=== PATIENT | female | born 1995 | race Two or more races ===

== ENCOUNTER 2019-12-29 09:25 | Inpatient (IN) | payer OTHER ==
[~2019-12-29] VITALS: Ht 165.1 cm; Wt 90.0 kg
[2019-12-29] MEDS ORDERED: OXYTOCIN 30U/ 0.9% NaCL 500ML 500 ML ONE (09:33)
[2019-12-29] MEDS ORDERED: LIDOCAINE 1%, 20ML ONE (09:40)
[2019-12-29] MEDS: OXYTOCIN 30U/ 0.9% NaCL 500ML 500 ML IV SCH ×2 (10:10→20:10)
[2019-12-29] MEDS ORDERED: NEWBORN KIT ONE (10:20)
[2019-12-29] MEDS ORDERED: MISOPROSTOL 200 MCG TABLET PR PRN (10:30)
[2019-12-29] MEDS ORDERED: METHYLERGONOVINE 0.2 MG/ML IM PRN (10:30)
[2019-12-29] MEDS ORDERED: ACETAMINOPHEN 325 MG TABLET PO PRN (10:30)
[2019-12-29] MEDS ORDERED: CARBOPROST TROMETHAMINE 250 MCG/ML, 1ML IM PRN (10:30)
[2019-12-29] MEDS ORDERED: PLEASE ENTER ALLERGIES MC SCH (10:30)
[2019-12-29] MEDS ORDERED: METOCLOPRAMIDE 5 MG/ML, 2ML IV PRN (10:30)
[2019-12-29] MEDS ORDERED: OXYcodone/APAP 5/325MG TABLET PO PRN (10:30)
[2019-12-29] MEDS ORDERED: OXYcodone IR 5MG TABLET PO PRN (10:30)
[2019-12-29] MEDS ORDERED: PLEASE ENTER HEIGHT AND WEIGHT MC SCH (10:30)
[2019-12-29] MEDS ORDERED: SIMETHICONE 80 MG CHEW TAB PO PRN (10:30)
[2019-12-29] MEDS ORDERED: ONDANSETRON 2MG/ML, 2ML IV PRN (10:30)
[2019-12-29] MEDS: LACTATED RINGERS 1,000 ML IV SCH ×2 (10:55→18:55)
[2019-12-29] MEDS ORDERED: AMPICILLIN 2 GM in SODIUM CHLORIDE 0.9% 100 ML IVPB STA (10:55)
[2019-12-29 11:35] LABS: BASOPHILS # (AUTO) 0.02 x10^3/uL (0-0.1); BASOPHILS % (AUTO) 0 % (0-1); EOSINOPHILS # (AUTO) 0.02 x10^3/uL (0-0.4); EOSINOPHILS % (AUTO) 0 % (1-7); LYMPHOCYTES # (AUTO) 0.79 x10^3/uL (1-3.4); LYMPHOCYTES % (AUTO) 7 % (22-44); MD NO; MEAN CORPUSCULAR HEMOGLOBIN 25.4 pg (27.0-34.8); MEAN CORPUSCULAR HGB CONC 32.4 g/dL (32.4-35.8); MEAN CORPUSCULAR VOLUME 78.2 fL (80-100); MEAN PLATELET VOLUME 7.7 fL (7.4-10.4); MONOCYTES # (AUTO) 0.35 x10^3/uL (0.2-0.8); MONOCYTES % (AUTO) 3 % (2-9); NEUTROPHILS # (AUTO) 10.35 x10^3/uL (1.8-6.8); NEUTROPHILS % (AUTO) 90 % (42-75); PLATELET COUNT 215 x10^3/uL (130-400); RED BLOOD COUNT 3.78 x10^6/uL (3.82-5.3)
[2019-12-29 12:50] VITALS: BP 115/72
[2019-12-29] MEDS: IBUPROFEN 600 MG TABLET PO PRN (16:11)
[2019-12-29 20:01] VITALS: BP 113/70
[2019-12-30 00:15] VITALS: BP 113/74
[2019-12-30] MEDS: LACTATED RINGERS 1,000 ML IV SCH ×2 (02:55→18:55)
[2019-12-30] MEDS: OXYTOCIN 30U/ 0.9% NaCL 500ML 500 ML IV SCH ×2 (04:22→19:00)
[2019-12-30 05:14] VITALS: BP 114/75
[2019-12-30] MEDS: IBUPROFEN 600 MG TABLET PO PRN (07:35)
[2019-12-30] MEDS: DOCUSATE 100 MG CAPSULE PO PRN (07:35)
[2019-12-30] MEDS: PRENATAL VIT/IRON/FA 1 EACH TABLET PO SCH (07:35)
[2019-12-30 07:50] VITALS: BP 115/73
[2019-12-30 20:10] VITALS: BP 128/86
[2019-12-30 20:31] LABS: BASOPHILS # (AUTO) 0.04 x10^3/uL (0-0.1); BASOPHILS % (AUTO) 0 % (0-1); EOSINOPHILS % (AUTO) 1 % (1-7); LYMPHOCYTES # (AUTO) 2.48 x10^3/uL (1-3.4); LYMPHOCYTES % (AUTO) 26 % (22-44); MD NO; MEAN CORPUSCULAR HEMOGLOBIN 25.3 pg (27.0-34.8); MEAN CORPUSCULAR HGB CONC 32.4 g/dL (32.4-35.8); MEAN CORPUSCULAR VOLUME 78.2 fL (80-100); MEAN PLATELET VOLUME 7.1 fL (7.4-10.4); MONOCYTES # (AUTO) 0.38 x10^3/uL (0.2-0.8); MONOCYTES % (AUTO) 4 % (2-9); NEUTROPHILS # (AUTO) 6.75 x10^3/uL (1.8-6.8); NEUTROPHILS % (AUTO) 69 % (42-75); PLATELET COUNT 255 x10^3/uL (130-400); RED BLOOD COUNT 3.69 x10^6/uL (3.82-5.3); RED CELL DISTRIBUTION WIDTH 15.4 % (9.6-15.2)
[2019-12-31] MEDS: IBUPROFEN 600 MG TABLET PO PRN ×2 (01:29→09:18)
[2019-12-31] MEDS: OXYTOCIN 30U/ 0.9% NaCL 500ML 500 ML IV SCH (02:10)
[2019-12-31] MEDS: LACTATED RINGERS 1,000 ML IV SCH ×2 (02:55→10:55)
[2019-12-31 09:15] VITALS: BP 112/78
[2019-12-31] MEDS: PRENATAL VIT/IRON/FA 1 EACH TABLET PO SCH (09:18)
[2019-12-31] MEDS: DOCUSATE 100 MG CAPSULE PO PRN (09:18)
[2019-12-31] MEDS ORDERED: MEDROXYPROGESTERONE ACETATE 150 MG/ML IM ONE (12:00)
[2019-12-31] MEDS ORDERED: DOCU-131 PO (12:11)
[2019-12-31] MEDS ORDERED: IBUP-1222 PO (12:11)
[2019-12-31] MEDS ORDERED: FERR324T18 PO (12:29)
[2019-12-31] MEDS ORDERED: FERROUS GLUCONATE 324 MG TABLET PO SCH (17:00)
== END 2019-12-31 16:30 | disposition home or self-care (01) | DRG 807 ==
LOC: LDIP 09:25 → 2NW 11:26
PROVIDERS: ADMIT Obstetrics & Gynecology Maternal & Fetal Medicine; ATTEND Obstetrics & Gynecology Maternal & Fetal Medicine
PROC: 10E0XZZ Delivery of Products of Conception, External Approach (ICD-10-PCS; principal; 2019-12-29)
PROC: 0UQMXZZ Repair Vulva, External Approach (ICD-10-PCS; 2019-12-29)
DX: O62.3 Precipitate labor (principal); Z37.0 Single live birth; O76 Abnormality in fetal heart rate and rhythm complicating labor and delivery; O77.0 Labor and delivery complicated by meconium in amniotic fluid; O99.824 Streptococcus B carrier state complicating childbirth; Z3A.39 39 weeks gestation of pregnancy; O70.0 First degree perineal laceration during delivery; O69.81X0 Labor and delivery complicated by cord around neck, without compression, not applicable or unspecified
CPT/HCPCS: 36415; 85025; 86592; 86850; 86900; 87806; G0378; G0475; J1050

== ENCOUNTER → 2020-12-26 | Outpatient (CLI) | payer OTHER ==
[~2020-12-26] MED LIST: DOCU-131 PO; FERR324T18 PO; IBUP-1222 PO
[2020-12-26 15:32] LABS: BASOPHILS % (AUTO) 1 % (0-1); EOSINOPHILS % (AUTO) 1 % (1-7); LYMPHOCYTES % (AUTO) 33 % (22-44); MEAN CORPUSCULAR HEMOGLOBIN 28.8 pg (27.0-34.8); MEAN CORPUSCULAR HGB CONC 33.6 g/dL (32.4-35.8); MEAN PLATELET VOLUME 7.7 fL (7.4-10.4); MONOCYTES % (AUTO) 5 % (2-9); NEUTROPHILS % (AUTO) 60 % (42-75); PLATELET COUNT 365 x10^3/uL (130-400); RED BLOOD COUNT 4.54 x10^6/uL (3.82-5.3); RED CELL DISTRIBUTION WIDTH 13.8 % (9.6-15.2)
[2020-12-26 15:38] LABS: MD NO
[2020-12-26 16:05] LABS: MICROSCOPIC NOT IND
== END | disposition home or self-care (01) ==
LOC: STAR 14:09
PROVIDERS: ATTEND Obstetrics & Gynecology
DX: Z01.812 Encounter for preprocedural laboratory examination (principal); Z20.822 Contact with and (suspected) exposure to COVID-19
CPT/HCPCS: 81003; 84703; 85025; 87635

== ENCOUNTER 2020-12-30 07:10 | Day surgery (SDC) | payer OTHER ==
[~2020-12-30] VITALS: Ht 165.1 cm; Wt 89.7 kg
[2020-12-30] MEDS ORDERED: MIDAZOLAM 1 MG/ML, 2ML ONE (07:54)
[2020-12-30] MEDS ORDERED: FENTANYL PF 250 MCG/5ML ONE (07:54)
[2020-12-30 08:07] VITALS: BP 110/74
[2020-12-30] MEDS ORDERED: CHLORHEXIDINE 15 ML UDC ONE (08:11)
[2020-12-30] MEDS ORDERED: BUPIVACAINE/PF 0.25% ONE (08:24)
[2020-12-30] MEDS ORDERED: EPINEPHRINE 1 MG/ML, 1ML ONE (08:24)
[2020-12-30] MEDS ORDERED: MEPERIDINE/PF 25MG/0.5ML IVPush PRN (08:30)
[2020-12-30] MEDS ORDERED: HYDROmorphone 1 MG/ML, 1ML INJ IVPush PRN (08:30)
[2020-12-30] MEDS ORDERED: PROMETHAZINE 25 MG/ML, 1ML IVPush PRN (08:30)
[2020-12-30] MEDS ORDERED: FENTANYL PF 100 MCG/2ML IV PRN (08:30)
[2020-12-30] MEDS ORDERED: morphine SULFATE 10 MG/ML, 1ML IVPush PRN (08:30)
[2020-12-30] MEDS ORDERED: OXYcodone 5 MG/5 ML ORAL.SOL UDC PO PRN (08:30)
[2020-12-30] MEDS ORDERED: LACTATED RINGERS 1,000 ML IV SCH (08:30)
[2020-12-30] MEDS ORDERED: CHLORHEXIDINE 15 ML UDC MM ONE (08:30)
[2020-12-30] MEDS ORDERED: ACETAMINOPHEN 325 MG TABLET PO PRN (08:30)
[2020-12-30] MEDS ORDERED: HALOPERIDOL 5 MG/ML IV PRN (08:30)
[2020-12-30] MEDS ORDERED: BUPIVACAINE/PF-EPI 0.25% 1:200K IM ONE (09:17)
[2020-12-30] MEDS ORDERED: NEOSTIGMINE 1 MG/ML, 10ML ONE (09:25)
[2020-12-30] MEDS ORDERED: PROPOFOL 10 MG/ML, 20ML ONE (09:25)
[2020-12-30] MEDS ORDERED: ROCURONIUM 10MG/ML,5ML ONE (09:25)
[2020-12-30] MEDS ORDERED: DEXAMETHASONE 4 MG/ML, 1ML ONE (09:25)
[2020-12-30] MEDS ORDERED: GLYCOPYRROLATE 0.2MG/1ML, 5ML ONE (09:25)
[2020-12-30] MEDS ORDERED: ONDANSETRON 2MG/ML, 2ML ONE (09:25)
[2020-12-30] MEDS ORDERED: CEFAZOLIN 1,000 MG ONE (09:25)
[2020-12-30] MEDS ORDERED: OXYC1TAB14 PO (09:37)
== END 2020-12-30 11:40 | disposition home or self-care (01) ==
LOC: OUT 07:10
PROVIDERS: ATTEND Obstetrics & Gynecology
DX: Z30.2 Encounter for sterilization (principal); G43.909 Migraine, unspecified, not intractable, without status migrainosus; Z79.899 Other long term (current) drug therapy; Z98.890 Other specified postprocedural states
CPT/HCPCS: 58670; 81025; 88302; J0171; J0690; J1100; J2250; J2405; J2704; J2710; J3010; J7120

== ENCOUNTER 2021-07-23 13:35 | Emergency (ER) | payer OTHER ==
[~2021-07-23] VITALS: Ht 165.1 cm; Wt 94.5 kg
[~2021-07-23 13:35] MED LIST changes: +OXYC1TAB12 PO
[2021-07-23] MEDS ORDERED: PHENAZOPYRIDINE 200 MG TABLET PO ONE (14:00)
[2021-07-23 14:16] LABS: MICROSCOPIC AUTO
[2021-07-23 14:22] LABS: ALBUMIN 3.7 g/dL (3.4-5.0); ANION GAP 5 mmol/L (5-15); CALCIUM 9.5 mg/dL (8.5-10.1); CHLORIDE 106 mmol/L (98-107)
[2021-07-23 14:27] LABS: CREATININE 0.78 mg/dL (0.55-1.02)
[2021-07-23 14:29] LABS: BASOPHILS % (AUTO) 1 % (0-1); EOSINOPHILS % (AUTO) 1 % (1-7); LYMPHOCYTES % (AUTO) 25 % (22-44); MEAN CORPUSCULAR HGB CONC 33.5 g/dL (32.4-35.8); MEAN PLATELET VOLUME 7.6 fL (7.4-10.4); MONOCYTES % (AUTO) 5 % (2-9); NEUTROPHILS % (AUTO) 69 % (42-75); PLATELET COUNT 305 x10^3/uL (130-400); RED BLOOD COUNT 4.42 x10^6/uL (3.82-5.3); RED CELL DISTRIBUTION WIDTH 14.6 % (9.6-15.2)
--- NOTE | 2021-07-23 15:30 | NUR ---
PT TO ROOM FROM LOBBY.
[2021-07-23] MEDS ORDERED: PHENAZOPYRIDINE 200 MG TABLET ONE (15:39)
[2021-07-23 16:10] VITALS: BP 124/70
== END 2021-07-23 16:19 | disposition home or self-care (01) ==
LOC: ED 15:45
DX: N30.00 Acute cystitis without hematuria (principal)
CPT/HCPCS: 36415; 80048; 81001; 82040; 84703; 85025; 87077; 87086; 87147; 87186; 99283